=== PATIENT | male | born 1965 | race African-American/Black ===

== ENCOUNTER 2021-02-14 23:32 | Inpatient (IN) | payer OTHER ==
[2021-02-14 23:52] VITALS: BMI 24.4
[2021-02-15] MEDS ORDERED: SODIUM CHLORIDE 2,449 ML IV ONE (00:15)
[2021-02-15 00:57] LABS: VENOUS BASE EXCESS 0.4 mmol/L (-2-2); VENOUS O2 SATURATION 25.1 % (70-80); VENOUS PCO2 63.9 mmHg (38-52); VENOUS PH 7.267 (7.310-7.410)
[2021-02-15 01:00] LABS: BASO % 0.1 % (0-2.0); EOS % 4.4 % (0-4.5); HEMATOCRIT 32.6 % (35.4-49); HEMOGLOBIN 10.5 GM/dL (11.7-16.9); LYMPH % 13.6 % (8-40); MCHC 32.3 g/dl (32.0-35.9); MEAN CELL VOLUME 60.1 fl (80-96); MEAN PLT VOLUME 8.9 fl (7.5-11.1); MONO % 15.5 % (3.8-10.2); NEUT % 66.4 % (42.8-82.8); PLATELET COUNT 183 10^3/uL (134-434); RBC 5.42 M/mm3 (4.00-5.60); RDW 19.7 % (11.9-15.9); WHITE BLOOD COUNT 11.3 K/mm3 (4.0-10.0)
[2021-02-15 01:03] LABS: EPI CELLS 31 /uL (0-25.1); HYALINE CASTS 16 /uL (0-3.1); URINE APPEARANCE CLOUDY; URINE BACTERIA 11 /uL (0-1359); URINE BILIRUBIN NEGATIVE (NEGATIVE); URINE COLOR YELLOW; URINE GLUCOSE (UA) NEGATIVE (NEGATIVE); URINE KETONE TRACE (NEGATIVE); URINE LEUK ESTERASE TRACE (NEGATIVE); URINE NITRITE NEGATIVE (NEGATIVE); URINE PROTEIN 1+ (NEGATIVE); URINE RBC 84 /uL (0-23.9); URINE WBC 42 /uL (0-25.8)
[2021-02-15 01:04] LABS: MCH 19.4 pg (25.7-33.7)
[2021-02-15 01:08] LABS: METHADONE, UR NEGATIVE (NEGATIVE); URINE BENZODIAZEPINES NEGATIVE (NEGATIVE)
[2021-02-15 01:10] LABS: PHENCYCLIDINE,URINE NEGATIVE (NEGATIVE); URINE BARBITURATES NEGATIVE (NEGATIVE)
[2021-02-15 01:12] LABS: URINE AMPHETAMINES NEGATIVE (NEGATIVE)
[2021-02-15 01:14] LABS: CHLORIDE 106 mmol/L (98-107); INR 1.07 (0.83-1.09); PROTHROMBIN TIME (PATIENT) 12.9 SEC (9.7-13.0); SODIUM 141 mmol/L (136-145)
[2021-02-15 01:16] LABS: ACTIVATED PTT 29.7 SECONDS (25.2-36.5)
[2021-02-15 01:17] LABS: ALBUMIN 3.6 g/dl (3.4-5.0); ANION GAP 8 MMOL/L (8-16); BLOOD UREA NITROGEN 38.9 mg/dL (7-18); CALCIUM 8.7 mg/dL (8.5-10.1); CO2 26 mmol/L (21-32)
[2021-02-15 01:18] LABS: GLUCOSE,RANDOM 117 mg/dL (74-106)
[2021-02-15 01:20] LABS: CREATININE 1.5 mg/dL (0.55-1.3); SGOT/AST 112 U/L (15-37); SGPT/ALT 36 U/L (13-61)
[2021-02-15 01:22] LABS: ALK PHOS 92 U/L (45-117)
[2021-02-15 01:42] LABS: COCAINE, UR POSITIVE (NEGATIVE); OPIATES, URI POSITIVE (NEGATIVE)
[2021-02-15] MEDS ORDERED: CEFTRIAXONE 1 GM in DEXTROSE 5%-WATER - 100 ML IVPB ONE (01:51)
[2021-02-15 03:04] LABS: ANISOCYTOSIS 2+; MACROCYTOSIS 1+; PLATELET ESTIMATE NORMAL; ROULEAU 1+
[2021-02-15] MEDS ORDERED: CEFTRIAXONE 1 GM/50 ML BAG ONE (03:07)
[2021-02-15] MEDS ORDERED: ASPIRIN COATED 81 MG TABLET.EC PO ONE (04:41)
[2021-02-15] MEDS ORDERED: HEPARIN NA (PORCINE) 5,000 UNITS/ML 1ML VIAL ONE (05:01)
[2021-02-15] MEDS ORDERED: ASPIRIN COATED 81 MG TABLET.EC ONE (05:01)
[2021-02-15] MEDS: SODIUM CHLORIDE 1,000 ML IV SCH (05:17)
[2021-02-15] MEDS: HEPARIN NA (PORCINE) 5,000 UNITS/ML 1ML VIAL SQ SCH ×3 (05:18→21:16)
[2021-02-15 11:49] LABS: BASO % 0.3 % (0-2.0); EOS % 4.6 % (0-4.5); HEMOGLOBIN 9.8 GM/dL (11.7-16.9); LYMPH % 9.3 % (8-40); MCH 19.2 pg (25.7-33.7); MCHC 31.6 g/dl (32.0-35.9); MEAN CELL VOLUME 60.7 fl (80-96); MEAN PLT VOLUME 8.7 fl (7.5-11.1); MONO % 13.3 % (3.8-10.2); NEUT % 72.5 % (42.8-82.8); PLATELET COUNT 168 10^3/uL (134-434); RBC 5.11 M/mm3 (4.00-5.60); RDW 19.6 % (11.9-15.9); RETICULOCYTES 1.44 % (0.5-1.5); WHITE BLOOD COUNT 11.3 K/mm3 (4.0-10.0)
[2021-02-15 11:54] LABS: INR 1.14 (0.83-1.09)
[2021-02-15 12:11] LABS: ALBUMIN 3.2 g/dl (3.4-5.0); CALCIUM 8.4 mg/dL (8.5-10.1); MAGNESIUM 2.6 mg/dL (1.8-2.4)
[2021-02-15 12:15] LABS: BLOOD UREA NITROGEN 24.6 mg/dL (7-18); CREATININE 0.7 mg/dL (0.55-1.3); PHOSPHOROUS 2.2 mg/dL (2.5-4.9)
[2021-02-15 12:17] LABS: TOT PROT 6.5 g/dl (6.4-8.2)
[2021-02-15 12:37] LABS: BILIRUBIN,TOTAL 1.2 mg/dL (0.2-1)
[2021-02-15] MEDS: ACETAMINOPHEN 325 MG TABLET (FP) PO PRN (17:49)
[2021-02-15] MEDS ORDERED: MORPHINE SULFATE 2 MG/ML VIAL IVPUSH ONE (21:17)
[2021-02-15] MEDS ORDERED: ACETAMINOPHEN 1000 MG/100 ML VIAL (NON FORMULARY) IVPB ONE (23:30)
[2021-02-16] MEDS ORDERED: MORPHINE SULFATE 2 MG/ML VIAL IVPUSH PRN (01:00)
[2021-02-16] MEDS: SODIUM CHLORIDE 1,000 ML IV SCH ×3 (05:40→15:12)
[2021-02-16] MEDS: HEPARIN NA (PORCINE) 5,000 UNITS/ML 1ML VIAL SQ SCH ×3 (05:49→22:18)
[2021-02-16] MEDS: LISINOPRIL 5 MG TABLET PO SCH (09:48)
[2021-02-16] MEDS: morphine SO4 SUSTAINED ACTING 30 MG TABLET.SA PO SCH ×2 (09:48→22:18)
[2021-02-16] MEDS ORDERED: PT OWN MED DRAWER 7, Y5N ONE ×3 (10:33→21:54)
[2021-02-16] MEDS: OXYBUTYNIN CHLORIDE 5 MG TABLET PO SCH ×2 (10:35→22:18)
[2021-02-16] MEDS: GABAPENTIN 300 MG CAPSULE PO SCH ×2 (10:35→22:17)
[2021-02-16 11:00] LABS: BASO % 0.3 % (0-2.0); EOS % 7.9 % (0-4.5); HEMATOCRIT 31.3 % (35.4-49); HEMOGLOBIN 9.8 GM/dL (11.7-16.9); MCHC 31.3 g/dl (32.0-35.9); MEAN CELL VOLUME 61.2 fl (80-96); MEAN PLT VOLUME 9.9 fl (7.5-11.1); MONO % 15.8 % (3.8-10.2); PLATELET COUNT 161 10^3/uL (134-434); RBC 5.11 M/mm3 (4.00-5.60); RDW 20.4 % (11.9-15.9); WHITE BLOOD COUNT 5.9 K/mm3 (4.0-10.0)
[2021-02-16 11:02] LABS: MCH 19.2 pg (25.7-33.7)
[2021-02-16 11:24] LABS: BLOOD UREA NITROGEN 12.2 mg/dL (7-18); CALCIUM 8.7 mg/dL (8.5-10.1)
[2021-02-16 11:28] LABS: CREATININE 0.5 mg/dL (0.55-1.3); PHOSPHOROUS 2.2 mg/dL (2.5-4.9)
[2021-02-16] MEDS: morphine SULFATE IMMEDIATE RELEASE 30 MG TAB PO PRN ×2 (12:31→18:05)
[2021-02-16] MEDS: BACLOFEN 10 MG TABLET (FP) PO SCH ×2 (13:06→22:18)
[2021-02-16 13:33] LABS: PLATELET ESTIMATE NORMAL
[2021-02-17] MEDS: morphine SULFATE IMMEDIATE RELEASE 30 MG TAB PO PRN ×4 (00:10→18:33)
[2021-02-17] MEDS ORDERED: PT OWN MED DRAWER 7, Y5N ONE ×3 (05:56→13:16)
[2021-02-17] MEDS: BACLOFEN 10 MG TABLET (FP) PO SCH ×3 (06:14→21:23)
[2021-02-17] MEDS: HEPARIN NA (PORCINE) 5,000 UNITS/ML 1ML VIAL SQ SCH ×3 (06:14→21:23)
[2021-02-17 06:38] LABS: BASO % 0.3 % (0-2.0); EOS % 6.5 % (0-4.5); HEMATOCRIT 29.4 % (35.4-49); HEMOGLOBIN 9.3 GM/dL (11.7-16.9); LYMPH % 16.2 % (8-40); MCHC 31.8 g/dl (32.0-35.9); MEAN CELL VOLUME 60.9 fl (80-96); MEAN PLT VOLUME 9.7 fl (7.5-11.1); MONO % 12.8 % (3.8-10.2); NEUT % 64.2 % (42.8-82.8); PLATELET COUNT 183 10^3/uL (134-434); RBC 4.82 M/mm3 (4.00-5.60); RDW 19.6 % (11.9-15.9)
[2021-02-17 06:59] LABS: BLOOD UREA NITROGEN 10.8 mg/dL (7-18); CALCIUM 8.6 mg/dL (8.5-10.1)
[2021-02-17 07:03] LABS: CREATININE 0.6 mg/dL (0.55-1.3); MCH 19.4 pg (25.7-33.7)
[2021-02-17] MEDS: GABAPENTIN 300 MG CAPSULE PO SCH ×2 (09:36→21:23)
[2021-02-17] MEDS: OXYBUTYNIN CHLORIDE 5 MG TABLET PO SCH ×2 (09:37→21:23)
[2021-02-17] MEDS: LISINOPRIL 5 MG TABLET PO SCH (09:37)
[2021-02-17] MEDS: morphine SO4 SUSTAINED ACTING 30 MG TABLET.SA PO SCH ×2 (09:37→21:24)
[2021-02-17] MEDS: SODIUM CHLORIDE 1,000 ML IV SCH (18:30)
[2021-02-17] MEDS: ACETAMINOPHEN 325 MG TABLET (FP) PO PRN (18:38)
[2021-02-17 21:36] VITALS: BP 117/52; PULSE 78; TEMP 98.5
[2021-02-18] MEDS: morphine SULFATE IMMEDIATE RELEASE 30 MG TAB PO PRN (00:54)
[2021-02-18] MEDS: ACETAMINOPHEN 325 MG TABLET (FP) PO PRN (03:20)
== END 2021-02-18 04:08 | disposition home or self-care (01) | DRG 351 ==
LOC: JER 23:32 → JERBED 02-15 02:04 → J4S 02-15 14:06
PROVIDERS: ADMIT Internal Medicine; ATTEND Internal Medicine
DX: M62.82 Rhabdomyolysis (principal); N17.9 Acute kidney failure, unspecified; I24.8 Other forms of acute ischemic heart disease; G82.20 Paraplegia, unspecified; D72.829 Elevated white blood cell count, unspecified; D50.9 Iron deficiency anemia, unspecified; I45.10 Unspecified right bundle-branch block; G89.29 Other chronic pain; F14.920 Cocaine use, unspecified with intoxication, uncomplicated; F14.988 Cocaine use, unspecified with other cocaine-induced disorder
CPT/HCPCS: 36415; 70450-TC; 71045-TC-FY; 80048; 80053; 80061; 80307; 81003; 82140; 82550; 82553; 82803; 83540; 83550; 83605; 83721; 83735; 84100; 84484; 85025; 85045; 85610; 85730; 86850; 86900; 86901; 87040; 87086; 93005; 93010; 93306-TC; 97161-GP; C9803; J0131; J0475; J1644; U0003; U0005

== ENCOUNTER 2021-05-03 15:23 | Inpatient (IN) | payer OTHER ==
[2021-05-03] MEDS ORDERED: ACETAMINOPHEN 1000 MG/100 ML VIAL (NON FORMULARY) IVPB ONE (17:51)
[2021-05-03] MEDS ORDERED: SODIUM CHLORIDE 1,000 ML IV STA ×2 (17:51→22:01)
[2021-05-03 18:32] LABS: BASO % 0.3 % (0-2.0); EOS % 4.3 % (0-4.5); HEMATOCRIT 26.2 % (35.4-49); HEMOGLOBIN 8.5 GM/dL (11.7-16.9); LYMPH % 13.7 % (8-40); MCHC 32.6 g/dl (32.0-35.9); MEAN CELL VOLUME 59.6 fl (80-96); MONO % 18.1 % (3.8-10.2); NEUT % 63.6 % (42.8-82.8); PLATELET COUNT 241 10^3/uL (134-434); RBC 4.39 M/mm3 (4.00-5.60); RDW 17.9 % (11.9-15.9); WHITE BLOOD COUNT 10.1 K/mm3 (4.0-10.0)
[2021-05-03] MEDS ORDERED: ACETAMINOPHEN INJECTION 100 ML IVPB ONE (18:33)
[2021-05-03 18:37] LABS: MCH 19.4 pg (25.7-33.7)
[2021-05-03 18:46] LABS: EPI CELLS 2 /uL (0-25.1); HYALINE CASTS 4 /uL (0-3.1); PH,URINE 5.5 (5.0-8.0); URINE APPEARANCE CLEAR; URINE BACTERIA 5839 /uL (0-1359); URINE BILIRUBIN NEGATIVE (NEGATIVE); URINE COLOR YELLOW; URINE GLUCOSE (UA) NEGATIVE (NEGATIVE); URINE KETONE NEGATIVE (NEGATIVE); URINE LEUK ESTERASE 2+ (NEGATIVE); URINE NITRITE POSITIVE (NEGATIVE); URINE PROTEIN 1+ (NEGATIVE); URINE RBC 72 /uL (0-23.9); URINE WBC 338 /uL (0-25.8)
[2021-05-03 18:48] LABS: CHLORIDE 109 mmol/L (98-107); SODIUM 143 mmol/L (136-145)
[2021-05-03 18:50] LABS: ALBUMIN 2.5 g/dl (3.4-5.0); ANION GAP 6 MMOL/L (8-16); CALCIUM 8.3 mg/dL (8.5-10.1); CO2 27 mmol/L (21-32)
[2021-05-03 18:51] LABS: GLUCOSE,RANDOM 96 mg/dL (74-106)
[2021-05-03 18:53] LABS: SGOT/AST 23 U/L (15-37); SGPT/ALT 36 U/L (13-61)
[2021-05-03 18:54] LABS: CREATININE 0.9 mg/dL (0.55-1.3)
[2021-05-03 18:55] LABS: BILIRUBIN,TOTAL 0.6 mg/dL (0.2-1); TOT PROT 6.8 g/dl (6.4-8.2)
[2021-05-03 18:56] LABS: ALK PHOS 94 U/L (45-117)
[2021-05-03 18:58] LABS: N-TERMINAL BNP 1674.7 pg/ml (5-125)
[2021-05-03] MEDS ORDERED: CEFTRIAXONE 1 GM in DEXTROSE 5%-WATER - 100 ML IVPB ONE (19:08)
[2021-05-03] MEDS ORDERED: CEFTRIAXONE 1 GM/50 ML BAG ONE (19:12)
[2021-05-03 19:33] LABS: ANISOCYTOSIS 3+; MACROCYTOSIS 0; OVALOCYTE 1+; PLATELET ESTIMATE NORMAL; TARGET CELLS 2+
[2021-05-03 19:56] LABS: METHADONE, UR NEGATIVE (NEGATIVE); URINE BARBITURATES NEGATIVE (NEGATIVE)
[2021-05-03 19:57] LABS: PHENCYCLIDINE,URINE NEGATIVE (NEGATIVE); URINE BENZODIAZEPINES NEGATIVE (NEGATIVE)
[2021-05-03 20:01] LABS: COCAINE, UR POSITIVE (NEGATIVE); OPIATES, URI POSITIVE (NEGATIVE); URINE AMPHETAMINES NEGATIVE (NEGATIVE)
[2021-05-03] MEDS ORDERED: morphine CARPU-JECT 4 MG/1 ML DISP.SYRIN IVPUSH ONE (22:00)
[2021-05-03] MEDS ORDERED: morphine SULFATE 4 MG/ML VIAL ONE (22:21)
[2021-05-04] MEDS: SODIUM CHLORIDE 1,000 ML IV SCH ×2 (01:23→18:33)
[2021-05-04] MEDS ORDERED: ACETAMINOPHEN 1000 MG/100 ML VIAL (NON FORMULARY) IVPB ONE (01:31)
[2021-05-04] MEDS ORDERED: PIPERACILLIN/TAZOB 3.375 GM 3.375 GM/50 ML BAG IVPB ONE (01:51)
[2021-05-04] MEDS ORDERED: PIPERACILLIN/TAZOB 3.375 GM 3.375 GM in DEXTROSE 5%-WATER - 50 ML IVPB SCH (02:00)
[2021-05-04] MEDS ORDERED: MEROPENEM 1 GM VIAL (RESTRICTED TO ID) IVPB ONE ×3 (05:29→18:25)
[2021-05-04] MEDS ORDERED: DEXTROSE 5%-WATER 100 ML IVPB ONE ×3 (05:29→18:25)
[2021-05-04] MEDS: MEROPENEM 1 GM in DEXTROSE 5%-WATER 100 ML IVPB SCH ×5 (05:33→18:33)
[2021-05-04 09:11] LABS: BASO % 0.6 % (0-2.0); EOS % 5.4 % (0-4.5); HEMOGLOBIN 8.7 GM/dL (11.7-16.9); MCHC 32.3 g/dl (32.0-35.9); MEAN CELL VOLUME 60.5 fl (80-96); MEAN PLT VOLUME 9.3 fl (7.5-11.1); MONO % 12.9 % (3.8-10.2); NEUT % 72.1 % (42.8-82.8); PLATELET COUNT 258 10^3/uL (134-434); RBC 4.47 M/mm3 (4.00-5.60); WHITE BLOOD COUNT 7.7 K/mm3 (4.0-10.0)
[2021-05-04 09:24] LABS: MCH 19.6 pg (25.7-33.7)
[2021-05-04 09:36] LABS: CALCIUM 8.2 mg/dL (8.5-10.1)
[2021-05-04 09:37] LABS: ALBUMIN 2.3 g/dl (3.4-5.0); BLOOD UREA NITROGEN 9.7 mg/dL (7-18); MAGNESIUM 2.1 mg/dL (1.8-2.4)
[2021-05-04] MEDS: ENOXAPARIN NA (PORCINE) 40 MG/0.4 ML DISP.SYRIN SQ SCH (09:38)
[2021-05-04 09:39] LABS: CREATININE 0.8 mg/dL (0.55-1.3)
[2021-05-04 09:40] LABS: PHOSPHOROUS 3.5 mg/dL (2.5-4.9)
[2021-05-04 09:41] LABS: BILIRUBIN,TOTAL 0.4 mg/dL (0.2-1); TOT PROT 6.5 g/dl (6.4-8.2)
[2021-05-04] MEDS ORDERED: GABAPENTIN 300 MG CAPSULE PO SCH (11:30)
[2021-05-04] MEDS: PANTOPRAZOLE 40 MG TABLET PO SCH (12:08)
[2021-05-04] MEDS ORDERED: morphine SO4 SUSTAINED ACTING 30 MG TABLET.SA PO PRN (12:16)
[2021-05-04 12:25] VITALS: BMI 24.9
[2021-05-04] MEDS ORDERED: morphine SO4 SUSTAINED ACTING 30 MG TABLET.SA PO ONE (13:15)
[2021-05-04] MEDS: BACLOFEN 10 MG TABLET (FP) PO SCH ×2 (13:31→21:12)
[2021-05-04] MEDS: POLYETHYLENE GLYCOL (HEALTHYLAX) 3350 17 GM PACKET PO SCH ×2 (14:00→21:12)
[2021-05-04] MEDS: OXYBUTYNIN CHLORIDE 5 MG TABLET PO SCH ×2 (15:22→21:11)
[2021-05-04] MEDS: GABAPENTIN 300 MG CAPSULE PO SCH ×2 (15:24→21:13)
[2021-05-04] MEDS: COLLAGENASE CLOSTRIDIUM HIST. 30 GRAMS TUBE TP SCH (16:00)
[2021-05-04] MEDS ORDERED: ACETAMINOPHEN 500 MG TABLET (FP) PO PRN (16:23)
[2021-05-04] MEDS ORDERED: morphine SO4 SUSTAINED ACTING 30 MG TABLET.SA PO SCH (16:30)
[2021-05-04] MEDS ORDERED: morphine SULFATE IMMEDIATE RELEASE 30 MG TAB PO SCH (17:45)
[2021-05-04] MEDS: morphine SO4 SUSTAINED ACTING 30 MG TABLET.SA PO SCH ×2 (18:02→18:03)
[2021-05-04] MEDS: morphine SULFATE IMMEDIATE RELEASE 30 MG TAB PO PRN (18:42)
[2021-05-04] MEDS ORDERED: PT OWN MED DRAWER 7, Y5N ONE (21:07)
[2021-05-04] MEDS: AMINO ACIDS/PROTEIN HYDROLYS 30 ML LIQUID.PKT PO SCH (21:11)
[2021-05-05] MEDS: morphine SULFATE IMMEDIATE RELEASE 30 MG TAB PO PRN ×4 (00:34→21:14)
[2021-05-05] MEDS: SODIUM CHLORIDE 1,000 ML IV SCH (00:38)
[2021-05-05] MEDS ORDERED: MEROPENEM 1 GM VIAL (RESTRICTED TO ID) IVPB ONE ×2 (01:06→11:04)
[2021-05-05] MEDS ORDERED: DEXTROSE 5%-WATER 100 ML IVPB ONE ×2 (01:06→11:04)
[2021-05-05] MEDS: MEROPENEM 1 GM in DEXTROSE 5%-WATER 100 ML IVPB SCH ×2 (01:26→11:41)
[2021-05-05] MEDS: morphine SO4 SUSTAINED ACTING 30 MG TABLET.SA PO SCH ×2 (01:26→13:31)
[2021-05-05] MEDS: GABAPENTIN 300 MG CAPSULE PO SCH ×3 (06:08→21:26)
[2021-05-05] MEDS: POLYETHYLENE GLYCOL (HEALTHYLAX) 3350 17 GM PACKET PO SCH ×3 (06:09→21:27)
[2021-05-05] MEDS: BACLOFEN 10 MG TABLET (FP) PO SCH ×3 (06:09→21:27)
[2021-05-05 09:06] LABS: BLOOD UREA NITROGEN 8.6 mg/dL (7-18); CALCIUM 8.2 mg/dL (8.5-10.1)
[2021-05-05 09:09] LABS: CREATININE 0.7 mg/dL (0.55-1.3)
[2021-05-05] MEDS ORDERED: ACETAMINOPHEN 1000 MG/100 ML VIAL (NON FORMULARY) IVPB PRN (10:07)
[2021-05-05] MEDS: PANTOPRAZOLE 40 MG TABLET PO SCH (11:41)
[2021-05-05] MEDS: MULTIVITAMINS (DAILY MVI) TABLET (FP) PO SCH (11:41)
[2021-05-05] MEDS: AMINO ACIDS/PROTEIN HYDROLYS 30 ML LIQUID.PKT PO SCH ×2 (11:41→17:30)
[2021-05-05] MEDS: COLLAGENASE CLOSTRIDIUM HIST. 30 GRAMS TUBE TP SCH (11:41)
[2021-05-05] MEDS: OXYBUTYNIN CHLORIDE 5 MG TABLET PO SCH ×2 (11:41→21:27)
[2021-05-05] MEDS: FERROUS SO4 325 MG TABLET (FP) PO SCH (11:41)
[2021-05-05] MEDS: ENOXAPARIN NA (PORCINE) 40 MG/0.4 ML DISP.SYRIN SQ SCH (11:41)
[2021-05-05] MEDS: FUROSEMIDE 20 MG TABLET (FP) PO SCH (11:41)
[2021-05-05 15:50] LABS: BASO % 0.3 % (0-2.0); EOS % 6.9 % (0-4.5); HEMATOCRIT 25.4 % (35.4-49); HEMOGLOBIN 8.2 GM/dL (11.7-16.9); LYMPH % 16.8 % (8-40); MCHC 32.3 g/dl (32.0-35.9); MEAN CELL VOLUME 60.2 fl (80-96); MEAN PLT VOLUME 8.7 fl (7.5-11.1); MONO % 12.5 % (3.8-10.2); NEUT % 63.5 % (42.8-82.8); PLATELET COUNT 309 10^3/uL (134-434); RBC 4.23 M/mm3 (4.00-5.60); RDW 17.8 % (11.9-15.9); WHITE BLOOD COUNT 7.5 K/mm3 (4.0-10.0)
[2021-05-05 15:54] LABS: MCH 19.5 pg (25.7-33.7)
[2021-05-05 16:00] LABS: INR 1.12 (0.83-1.09); PROTHROMBIN TIME (PATIENT) 13.7 SEC (9.7-13.0)
[2021-05-05] MEDS: VANCOMYCIN 1 GRAM (PRE-DOCKED) 1,000 MG/250 ML BAG IVPB SCH (17:30)
[2021-05-05] MEDS ORDERED: AZTREONAM 1 GM VIAL (RESTRICTED TO ID) ONE (19:53)
[2021-05-05] MEDS ORDERED: DEXTROSE 5%-WATER - 50 ML IVPB ONE (19:53)
[2021-05-05] MEDS: AZTREONAM 1 GM in DEXTROSE 5%-WATER - 50 ML IVPB SCH (20:00)
[2021-05-06] MEDS ORDERED: DEXTROSE 5%-WATER - 50 ML IVPB ONE ×2 (01:05→09:24)
[2021-05-06] MEDS ORDERED: AZTREONAM 1 GM VIAL (RESTRICTED TO ID) ONE ×2 (01:05→09:24)
[2021-05-06] MEDS: morphine SO4 SUSTAINED ACTING 30 MG TABLET.SA PO SCH ×2 (01:07→13:59)
[2021-05-06] MEDS: AZTREONAM 1 GM in DEXTROSE 5%-WATER - 50 ML IVPB SCH ×2 (02:00→10:26)
[2021-05-06] MEDS: morphine SULFATE IMMEDIATE RELEASE 30 MG TAB PO PRN ×4 (02:57→22:51)
[2021-05-06] MEDS: VANCOMYCIN 1 GRAM (PRE-DOCKED) 1,000 MG/250 ML BAG IVPB SCH (03:06)
[2021-05-06] MEDS: BACLOFEN 10 MG TABLET (FP) PO SCH ×3 (06:22→21:33)
[2021-05-06] MEDS: GABAPENTIN 300 MG CAPSULE PO SCH ×3 (06:23→21:33)
[2021-05-06] MEDS: POLYETHYLENE GLYCOL (HEALTHYLAX) 3350 17 GM PACKET PO SCH ×3 (06:23→21:33)
[2021-05-06] MEDS: AMINO ACIDS/PROTEIN HYDROLYS 30 ML LIQUID.PKT PO SCH ×2 (09:31→18:03)
[2021-05-06] MEDS: MULTIVITAMINS (DAILY MVI) TABLET (FP) PO SCH (09:32)
[2021-05-06] MEDS: COLLAGENASE CLOSTRIDIUM HIST. 30 GRAMS TUBE TP SCH (09:32)
[2021-05-06] MEDS: FERROUS SO4 325 MG TABLET (FP) PO SCH (09:32)
[2021-05-06] MEDS: OXYBUTYNIN CHLORIDE 5 MG TABLET PO SCH ×2 (09:32→21:33)
[2021-05-06] MEDS: PANTOPRAZOLE 40 MG TABLET PO SCH (09:32)
[2021-05-06] MEDS: FUROSEMIDE 20 MG TABLET (FP) PO SCH (09:32)
[2021-05-06] MEDS: ENOXAPARIN NA (PORCINE) 40 MG/0.4 ML DISP.SYRIN SQ SCH (09:32)
[2021-05-06 10:37] LABS: BASO % 0.5 % (0-2.0); EOS % 5.6 % (0-4.5); HEMATOCRIT 25.5 % (35.4-49); HEMOGLOBIN 8.4 GM/dL (11.7-16.9); LYMPH % 16.8 % (8-40); MCH 19.6 pg (25.7-33.7); MEAN CELL VOLUME 59.5 fl (80-96); MEAN PLT VOLUME 9.3 fl (7.5-11.1); MONO % 13.3 % (3.8-10.2); NEUT % 63.8 % (42.8-82.8); PLATELET COUNT 359 10^3/uL (134-434); RBC 4.28 M/mm3 (4.00-5.60); RDW 18.1 % (11.9-15.9)
[2021-05-06 11:04] LABS: CALCIUM 8.5 mg/dL (8.5-10.1)
[2021-05-06 11:05] LABS: BLOOD UREA NITROGEN 9.3 mg/dL (7-18)
[2021-05-06 11:08] LABS: CREATININE 0.8 mg/dL (0.55-1.3)
[2021-05-06] MEDS ORDERED: HYDROmorphone HCl 2 MG/ML VIAL IVPB ONE (16:42)
[2021-05-06] MEDS: ERTAPENEM SODIUM 1 GM in SODIUM CHLORIDE 50 ML IVPB SCH (18:07)
[2021-05-06] MEDS: MUPIROCIN 2% TOPICAL OINTMENT 22 GM TUBE TP SCH (21:33)
[2021-05-06] MEDS ORDERED: SENNOSIDES 8.6MG TABLET (FP) PO ONE (23:05)
[2021-05-07] MEDS: morphine SO4 SUSTAINED ACTING 30 MG TABLET.SA PO SCH ×3 (01:05→15:19)
[2021-05-07] MEDS: BACLOFEN 10 MG TABLET (FP) PO SCH ×3 (05:34→21:18)
[2021-05-07] MEDS: morphine SULFATE IMMEDIATE RELEASE 30 MG TAB PO PRN ×3 (05:34→17:49)
[2021-05-07] MEDS: GABAPENTIN 300 MG CAPSULE PO SCH ×3 (05:34→21:18)
[2021-05-07] MEDS: POLYETHYLENE GLYCOL (HEALTHYLAX) 3350 17 GM PACKET PO SCH ×3 (07:05→21:17)
[2021-05-07] MEDS ORDERED: PT OWN MED DRAWER 7, Y5N ONE ×2 (09:59→20:40)
[2021-05-07] MEDS: FERROUS SO4 325 MG TABLET (FP) PO SCH (10:18)
[2021-05-07] MEDS: ENOXAPARIN NA (PORCINE) 40 MG/0.4 ML DISP.SYRIN SQ SCH (10:18)
[2021-05-07] MEDS: MULTIVITAMINS (DAILY MVI) TABLET (FP) PO SCH (10:18)
[2021-05-07] MEDS: ERTAPENEM SODIUM 1 GM in SODIUM CHLORIDE 50 ML IVPB SCH (10:18)
[2021-05-07] MEDS: FUROSEMIDE 20 MG TABLET (FP) PO SCH (10:19)
[2021-05-07] MEDS: MUPIROCIN 2% TOPICAL OINTMENT 22 GM TUBE TP SCH ×2 (10:19→23:47)
[2021-05-07] MEDS: OXYBUTYNIN CHLORIDE 5 MG TABLET PO SCH ×2 (10:20→21:21)
[2021-05-07] MEDS: PANTOPRAZOLE 40 MG TABLET PO SCH (10:20)
[2021-05-07] MEDS: AMINO ACIDS/PROTEIN HYDROLYS 30 ML LIQUID.PKT PO SCH ×2 (10:24→17:51)
[2021-05-07 13:18] LABS: BASO % 0.5 % (0-2.0); EOS % 5.4 % (0-4.5); HEMATOCRIT 27.5 % (35.4-49); HEMOGLOBIN 8.9 GM/dL (11.7-16.9); LYMPH % 17.8 % (8-40); MCH 19.5 pg (25.7-33.7); MCHC 32.2 g/dl (32.0-35.9); MEAN CELL VOLUME 60.6 fl (80-96); MEAN PLT VOLUME 9.1 fl (7.5-11.1); MONO % 10.9 % (3.8-10.2); NEUT % 65.4 % (42.8-82.8); PLATELET COUNT 340 10^3/uL (134-434); RBC 4.54 M/mm3 (4.00-5.60); WHITE BLOOD COUNT 8.4 K/mm3 (4.0-10.0)
[2021-05-07 13:47] LABS: ALBUMIN 2.4 g/dl (3.4-5.0); BLOOD UREA NITROGEN 12.4 mg/dL (7-18); CALCIUM 8.4 mg/dL (8.5-10.1)
[2021-05-07 13:51] LABS: CREATININE 0.7 mg/dL (0.55-1.3)
[2021-05-07 13:52] LABS: BILIRUBIN,TOTAL 0.2 mg/dL (0.2-1); TOT PROT 6.7 g/dl (6.4-8.2)
[2021-05-07 14:58] LABS: ANISOCYTOSIS 1+; MACROCYTOSIS 0; PLATELET ESTIMATE NORMAL; ROULEAU 1+; TARGET CELLS 1+
[2021-05-07] MEDS ORDERED: morphine SULFATE IMMEDIATE RELEASE 30 MG TAB PO PRN (20:08)
[2021-05-07] MEDS ORDERED: BISACODYL 10 MG SUPP.RECT PR ONE (23:46)
[2021-05-08] MEDS: morphine SO4 SUSTAINED ACTING 30 MG TABLET.SA PO SCH ×2 (00:47→12:13)
[2021-05-08] MEDS: BACLOFEN 10 MG TABLET (FP) PO SCH ×4 (05:19→21:19)
[2021-05-08] MEDS: POLYETHYLENE GLYCOL (HEALTHYLAX) 3350 17 GM PACKET PO SCH ×3 (05:19→21:21)
[2021-05-08] MEDS: GABAPENTIN 300 MG CAPSULE PO SCH ×4 (05:19→21:19)
[2021-05-08] MEDS ORDERED: morphine SULFATE IMMEDIATE RELEASE 30 MG TAB PO ONE (05:49)
[2021-05-08] MEDS ORDERED: PT OWN MED DRAWER 7, Y5N ONE (09:03)
[2021-05-08 09:22] LABS: BASO % 0.5 % (0-2.0); EOS % 5.1 % (0-4.5); HEMATOCRIT 27.4 % (35.4-49); LYMPH % 16.8 % (8-40); MCHC 32.7 g/dl (32.0-35.9); MEAN CELL VOLUME 59.9 fl (80-96); MEAN PLT VOLUME 9.1 fl (7.5-11.1); MONO % 13.3 % (3.8-10.2); NEUT % 64.3 % (42.8-82.8); PLATELET COUNT 398 10^3/uL (134-434); RBC 4.57 M/mm3 (4.00-5.60); RDW 17.8 % (11.9-15.9); WHITE BLOOD COUNT 8.1 K/mm3 (4.0-10.0)
[2021-05-08 09:25] LABS: MCH 19.6 pg (25.7-33.7)
[2021-05-08 09:45] LABS: CALCIUM 8.8 mg/dL (8.5-10.1)
[2021-05-08 09:46] LABS: ALBUMIN 2.5 g/dl (3.4-5.0); BLOOD UREA NITROGEN 13.8 mg/dL (7-18)
[2021-05-08 09:48] LABS: BILIRUBIN,TOTAL 0.6 mg/dL (0.2-1); CREATININE 0.7 mg/dL (0.55-1.3)
[2021-05-08] MEDS: MUPIROCIN 2% TOPICAL OINTMENT 22 GM TUBE TP SCH ×2 (10:01→21:30)
[2021-05-08] MEDS: AMINO ACIDS/PROTEIN HYDROLYS 30 ML LIQUID.PKT PO SCH ×2 (10:01→16:46)
[2021-05-08] MEDS: FUROSEMIDE 20 MG TABLET (FP) PO SCH (10:01)
[2021-05-08] MEDS: PANTOPRAZOLE 40 MG TABLET PO SCH (10:02)
[2021-05-08] MEDS: OXYBUTYNIN CHLORIDE 5 MG TABLET PO SCH ×2 (10:02→21:21)
[2021-05-08] MEDS: ENOXAPARIN NA (PORCINE) 40 MG/0.4 ML DISP.SYRIN SQ SCH (10:02)
[2021-05-08] MEDS: FERROUS SO4 325 MG TABLET (FP) PO SCH (10:02)
[2021-05-08] MEDS: MULTIVITAMINS (DAILY MVI) TABLET (FP) PO SCH (10:02)
[2021-05-08] MEDS ORDERED: ETOMIDATE 20 MG/10 ML AMPUL IVPUSH ONE (14:13)
[2021-05-08] MEDS: ERTAPENEM SODIUM 1 GM in SODIUM CHLORIDE 50 ML IVPB SCH (15:31)
[2021-05-08] MEDS: morphine SULFATE IMMEDIATE RELEASE 30 MG TAB PO PRN ×2 (15:34→21:20)
[2021-05-09] MEDS: morphine SO4 SUSTAINED ACTING 30 MG TABLET.SA PO SCH ×2 (00:50→13:52)
[2021-05-09] MEDS: morphine SULFATE IMMEDIATE RELEASE 30 MG TAB PO PRN ×3 (03:25→20:07)
[2021-05-09] MEDS: POLYETHYLENE GLYCOL (HEALTHYLAX) 3350 17 GM PACKET PO SCH (05:32)
[2021-05-09] MEDS: BACLOFEN 10 MG TABLET (FP) PO SCH ×3 (05:32→21:09)
[2021-05-09] MEDS: GABAPENTIN 300 MG CAPSULE PO SCH ×3 (05:32→21:09)
[2021-05-09] MEDS ORDERED: PT OWN MED DRAWER 7, Y5N ONE ×2 (09:08→20:40)
[2021-05-09] MEDS: AMINO ACIDS/PROTEIN HYDROLYS 30 ML LIQUID.PKT PO SCH ×2 (09:14→17:19)
[2021-05-09] MEDS: FUROSEMIDE 20 MG TABLET (FP) PO SCH (09:14)
[2021-05-09] MEDS: ERTAPENEM SODIUM 1 GM in SODIUM CHLORIDE 50 ML IVPB SCH (09:14)
[2021-05-09] MEDS: PANTOPRAZOLE 20 MG TABLET PO SCH (09:14)
[2021-05-09] MEDS: MULTIVITAMINS (DAILY MVI) TABLET (FP) PO SCH (09:14)
[2021-05-09] MEDS: FERROUS SO4 325 MG TABLET (FP) PO SCH (09:15)
[2021-05-09] MEDS: OXYBUTYNIN CHLORIDE 5 MG TABLET PO SCH ×2 (09:15→21:08)
[2021-05-09] MEDS: ENOXAPARIN NA (PORCINE) 40 MG/0.4 ML DISP.SYRIN SQ SCH (10:08)
[2021-05-09] MEDS: MUPIROCIN 2% TOPICAL OINTMENT 22 GM TUBE TP SCH ×2 (10:50→21:08)
[2021-05-10] MEDS ORDERED: BISACODYL 10 MG SUPP.RECT PR ONE (00:44)
[2021-05-10] MEDS: morphine SO4 SUSTAINED ACTING 30 MG TABLET.SA PO SCH ×2 (03:45→13:42)
[2021-05-10] MEDS: morphine SULFATE IMMEDIATE RELEASE 30 MG TAB PO PRN ×4 (03:51→22:36)
[2021-05-10] MEDS: BACLOFEN 10 MG TABLET (FP) PO SCH ×3 (05:10→21:34)
[2021-05-10] MEDS: GABAPENTIN 300 MG CAPSULE PO SCH ×3 (05:10→21:34)
[2021-05-10 09:38] LABS: BASO % 0.6 % (0-2.0); EOS % 6.8 % (0-4.5); HEMATOCRIT 29.7 % (35.4-49); HEMOGLOBIN 9.6 GM/dL (11.7-16.9); LYMPH % 24.1 % (8-40); MCHC 32.5 g/dl (32.0-35.9); MEAN PLT VOLUME 8.7 fl (7.5-11.1); MONO % 13.6 % (3.8-10.2); NEUT % 54.9 % (42.8-82.8); PLATELET COUNT 425 10^3/uL (134-434); RBC 4.95 M/mm3 (4.00-5.60); RDW 17.8 % (11.9-15.9); WHITE BLOOD COUNT 6.4 K/mm3 (4.0-10.0)
[2021-05-10 09:56] LABS: MCH 19.5 pg (25.7-33.7)
[2021-05-10] MEDS ORDERED: PT OWN MED DRAWER 7, Y5N ONE ×2 (10:09→20:42)
[2021-05-10 10:14] LABS: BLOOD UREA NITROGEN 17.8 mg/dL (7-18); CALCIUM 8.9 mg/dL (8.5-10.1); MAGNESIUM 2.3 mg/dL (1.8-2.4)
[2021-05-10 10:18] LABS: CREATININE 0.7 mg/dL (0.55-1.3); PHOSPHOROUS 3.2 mg/dL (2.5-4.9)
[2021-05-10] MEDS: ERTAPENEM SODIUM 1 GM in SODIUM CHLORIDE 50 ML IVPB SCH (10:24)
[2021-05-10] MEDS: AMINO ACIDS/PROTEIN HYDROLYS 30 ML LIQUID.PKT PO SCH ×2 (10:25→16:52)
[2021-05-10] MEDS: PANTOPRAZOLE 20 MG TABLET PO SCH (10:25)
[2021-05-10] MEDS: ENOXAPARIN NA (PORCINE) 40 MG/0.4 ML DISP.SYRIN SQ SCH (10:25)
[2021-05-10] MEDS: MUPIROCIN 2% TOPICAL OINTMENT 22 GM TUBE TP SCH ×2 (10:25→21:34)
[2021-05-10] MEDS: MULTIVITAMINS (DAILY MVI) TABLET (FP) PO SCH (10:25)
[2021-05-10] MEDS: FUROSEMIDE 20 MG TABLET (FP) PO SCH (10:25)
[2021-05-10] MEDS: FERROUS SO4 325 MG TABLET (FP) PO SCH (10:25)
[2021-05-10] MEDS: OXYBUTYNIN CHLORIDE 5 MG TABLET PO SCH ×2 (10:26→21:34)
[2021-05-11] MEDS: morphine SO4 SUSTAINED ACTING 30 MG TABLET.SA PO SCH ×2 (00:55→13:34)
[2021-05-11] MEDS: BACLOFEN 10 MG TABLET (FP) PO SCH ×3 (05:08→22:45)
[2021-05-11] MEDS: GABAPENTIN 300 MG CAPSULE PO SCH ×3 (05:08→22:45)
[2021-05-11] MEDS: morphine SULFATE IMMEDIATE RELEASE 30 MG TAB PO PRN ×4 (05:08→22:45)
[2021-05-11] MEDS ORDERED: PT OWN MED DRAWER 7, Y5N ONE ×2 (11:02→21:09)
[2021-05-11] MEDS: AMINO ACIDS/PROTEIN HYDROLYS 30 ML LIQUID.PKT PO SCH ×2 (11:11→17:21)
[2021-05-11] MEDS: FUROSEMIDE 20 MG TABLET (FP) PO SCH (11:11)
[2021-05-11] MEDS: MULTIVITAMINS (DAILY MVI) TABLET (FP) PO SCH (11:11)
[2021-05-11] MEDS: OXYBUTYNIN CHLORIDE 5 MG TABLET PO SCH ×2 (11:11→22:46)
[2021-05-11] MEDS: PANTOPRAZOLE 20 MG TABLET PO SCH (11:11)
[2021-05-11] MEDS: FERROUS SO4 325 MG TABLET (FP) PO SCH (11:11)
[2021-05-11] MEDS: MUPIROCIN 2% TOPICAL OINTMENT 22 GM TUBE TP SCH ×2 (11:11→22:45)
[2021-05-11] MEDS: ERTAPENEM SODIUM 1 GM in SODIUM CHLORIDE 50 ML IVPB SCH (11:11)
[2021-05-12] MEDS: morphine SO4 SUSTAINED ACTING 30 MG TABLET.SA PO SCH ×2 (01:24→14:15)
[2021-05-12] MEDS: GABAPENTIN 300 MG CAPSULE PO SCH ×2 (05:11→14:14)
[2021-05-12] MEDS: BACLOFEN 10 MG TABLET (FP) PO SCH ×2 (05:11→14:14)
[2021-05-12] MEDS: morphine SULFATE IMMEDIATE RELEASE 30 MG TAB PO PRN ×3 (05:19→17:28)
[2021-05-12] MEDS ORDERED: PT OWN MED DRAWER 7, Y5N ONE (09:50)
[2021-05-12] MEDS: FERROUS SO4 325 MG TABLET (FP) PO SCH (09:54)
[2021-05-12] MEDS: MULTIVITAMINS (DAILY MVI) TABLET (FP) PO SCH (09:54)
[2021-05-12] MEDS: PANTOPRAZOLE 20 MG TABLET PO SCH (09:55)
[2021-05-12] MEDS: AMINO ACIDS/PROTEIN HYDROLYS 30 ML LIQUID.PKT PO SCH ×2 (09:55→17:26)
[2021-05-12] MEDS: FUROSEMIDE 20 MG TABLET (FP) PO SCH (09:55)
[2021-05-12] MEDS: ERTAPENEM SODIUM 1 GM in SODIUM CHLORIDE 50 ML IVPB SCH (09:56)
[2021-05-12] MEDS: OXYBUTYNIN CHLORIDE 5 MG TABLET PO SCH (09:56)
[2021-05-12 10:47] LABS: BASO % 0.4 % (0-2.0); HEMATOCRIT 29.8 % (35.4-49); HEMOGLOBIN 9.5 GM/dL (11.7-16.9); LYMPH % 32.4 % (8-40); MEAN CELL VOLUME 60.6 fl (80-96); MONO % 15.9 % (3.8-10.2); NEUT % 44.3 % (42.8-82.8); PLATELET COUNT 408 10^3/uL (134-434); RBC 4.92 M/mm3 (4.00-5.60); RDW 18.3 % (11.9-15.9); WHITE BLOOD COUNT 5.7 K/mm3 (4.0-10.0)
[2021-05-12 10:50] LABS: MCH 19.4 pg (25.7-33.7)
[2021-05-12 11:08] LABS: BLOOD UREA NITROGEN 19.3 mg/dL (7-18)
[2021-05-12 11:11] LABS: CALCIUM 9.2 mg/dL (8.5-10.1)
[2021-05-12 11:12] LABS: ALBUMIN 2.9 g/dl (3.4-5.0); MAGNESIUM 2.2 mg/dL (1.8-2.4)
[2021-05-12 11:13] LABS: BILIRUBIN,TOTAL 0.8 mg/dL (0.2-1)
[2021-05-12 11:14] LABS: TOT PROT 7.6 g/dl (6.4-8.2)
[2021-05-12 11:15] LABS: CREATININE 0.8 mg/dL (0.55-1.3); PHOSPHOROUS 3.7 mg/dL (2.5-4.9)
[2021-05-12] MEDS: MUPIROCIN 2% TOPICAL OINTMENT 22 GM TUBE TP SCH (16:30)
[2021-05-12 17:41] VITALS: BP 100/59; PULSE 60; TEMP 98.6
== END 2021-05-12 18:47 | disposition home health service (06) | DRG 344 ==
LOC: JER 15:23 → JERBED 21:35 → J5S 05-04 03:15
PROVIDERS: ADMIT Internal Medicine
PROC: 0DB58ZX Excision of Esophagus, Via Natural or Artificial Opening Endoscopic, Diagnostic (ICD-10-PCS; 2021-05-08)
PROC: 0DB68ZX Excision of Stomach, Via Natural or Artificial Opening Endoscopic, Diagnostic (ICD-10-PCS; 2021-05-08)
PROC: 02HV33Z Insertion of Infusion Device into Superior Vena Cava, Percutaneous Approach (ICD-10-PCS; principal; 2021-05-12)
PROC: B518ZZA Fluoroscopy of Superior Vena Cava, Guidance (ICD-10-PCS; 2021-05-12)
DX: M86.9 Osteomyelitis, unspecified (principal); L89.613 Pressure ulcer of right heel, stage 3; R07.89 Other chest pain; N39.0 Urinary tract infection, site not specified; G82.20 Paraplegia, unspecified; B37.81 Candidal esophagitis; I10 Essential (primary) hypertension; E78.5 Hyperlipidemia, unspecified; F14.10 Cocaine abuse, uncomplicated; D50.9 Iron deficiency anemia, unspecified; J44.9 Chronic obstructive pulmonary disease, unspecified; I45.10 Unspecified right bundle-branch block; B96.1 Klebsiella pneumoniae [K. pneumoniae] as the cause of diseases classified elsewhere; B96.20 Unspecified Escherichia coli [E. coli] as the cause of diseases classified elsewhere; B95.2 Enterococcus as the cause of diseases classified elsewhere; R63.0 Anorexia; R94.31 Abnormal electrocardiogram [ECG] [EKG]; Z88.0 Allergy status to penicillin; Z99.3 Dependence on wheelchair; Z68.25 Body mass index [BMI] 25.0-25.9, adult
CPT/HCPCS: 36415; 36569; 70450-TC; 71045-TC-FY; 73590-TC-RT-FY; 73610-TC-RT-FY; 73630-TC-RT-FY; 76700-TC; 77001-TC-FY; 78315-TC; 80048; 80053; 80307; 81003; 82272; 82550; 82728; 82962; 83021; 83540; 83550; 83735; 83880; 84100; 84484; 85025; 85045; 85610; 85651; 85660; 86140; 87040; 87070; 87086; 87186; 87205; 88305-TC; 93005; 93010; 99285-25; A9503; C1751; C9803; J0131; J0475; U0003; U0005

== ENCOUNTER 2024-06-12 16:59 | Inpatient (IN) | payer OTHER ==
[2024-06-12] MEDS ORDERED: ACETAMINOPHEN INJECTION 100 ML ONE (19:36)
[2024-06-12 19:41] LABS: HEMATOCRIT 22.8 % (35.4-49); MCHC 30.6 g/dl (32.0-35.9); MEAN CELL VOLUME 54.6 fl (80-96); MEAN PLT VOLUME 8.5 fl (7.5-11.1); PLATELET COUNT 287 10^3/uL (134-434); POTASSIUM 4.5 mmol/L (3.5-5.1); RBC 4.18 M/mm3 (4.00-5.60); RDW 21.2 % (11.9-15.9); WHITE BLOOD COUNT 15.2 K/mm3 (4.0-10.0)
[2024-06-12] MEDS: ACETAMINOPHEN 1000 MG/100 ML BAG IVPB ONE (19:41)
[2024-06-12 19:42] LABS: MCH 16.7 pg (25.7-33.7)
[2024-06-12 19:43] LABS: ADD RBC MORPHOLOGY YES; CALCIUM 8.4 mg/dL (8.5-10.1)
[2024-06-12 19:44] LABS: BLOOD UREA NITROGEN 10.5 mg/dL (7-18)
[2024-06-12 19:47] LABS: CREATININE 1.1 mg/dL (0.55-1.3)
[2024-06-12 19:48] LABS: BILIRUBIN,TOTAL 0.8 mg/dL (0.2-1); TOT PROT 6.8 g/dl (6.4-8.2)
[2024-06-12 20:38] LABS: ANISOCYTOSIS 3+; MACROCYTOSIS 0; OVALOCYTE 2+; TARGET CELLS 2+
[2024-06-12 20:42] LABS: HIV INTERPRETATION NEGATIVE (NEGATIVE)
[2024-06-12 20:46] LABS: EPI CELLS >36 /uL (0-25.1); HYALINE CASTS 23 /uL (0-3.1); PH,URINE 6.5 (5.0-8.0); URINE APPEARANCE TURBID; URINE BACTERIA >9,000 /uL (0-1359); URINE BILIRUBIN NEGATIVE (NEGATIVE); URINE COLOR DK YELLOW; URINE GLUCOSE (UA) NEGATIVE (NEGATIVE); URINE KETONE TRACE (NEGATIVE); URINE LEUK ESTERASE 2+ (NEGATIVE); URINE NITRITE NEGATIVE (NEGATIVE); URINE PROTEIN 2+ (NEGATIVE); URINE RBC 188 /uL (0-23.9); URINE WBC 945 /uL (0-25.8)
[2024-06-12] MEDS ORDERED: morphine SULFATE 4 MG/ML VIAL ONE (20:56)
[2024-06-12] MEDS: morphine SULFATE 4 MG/ML VIAL IVPUSH ONE (21:01)
[2024-06-12 22:09] LABS: URINE CRYSTALS NONE SEEN /hpf
[2024-06-13] MEDS: ERTAPENEM SODIUM 0.5 GM in SODIUM CHLORIDE 50 ML IVPB ONE (00:41)
[2024-06-13] MEDS ORDERED: morphine SULFATE IMMEDIATE RELEASE 30 MG TAB ONE ×2 (01:02→13:11)
[2024-06-13] MEDS: morphine SULFATE IMMEDIATE RELEASE 30 MG TAB PO SCH (01:05)
[2024-06-13] MEDS: SODIUM CHLORIDE 0.9% 1000 ML INFUS.BAG IV ONE (01:33)
[2024-06-13] MEDS ORDERED: VANCOMYCIN/WATER 1250 MG 1,250 MG/250 ML BAG IVPB ONE (03:46)
[2024-06-13] MEDS: VANCOMYCIN/WATER 1250 MG 1,250 MG/250 ML BAG IVPB ONE (03:52)
[2024-06-13] MEDS ORDERED: BACLOFEN 10 MG TABLET (FP) ONE ×3 (05:42→22:17)
[2024-06-13] MEDS ORDERED: GABAPENTIN 300 MG CAPSULE ONE ×3 (05:44→22:17)
[2024-06-13 06:31] LABS: HEMATOCRIT 22.1 % (35.4-49); MCHC 31.1 g/dl (32.0-35.9); MEAN CELL VOLUME 54.4 fl (80-96); MEAN PLT VOLUME 8.9 fl (7.5-11.1); PLATELET COUNT 304 10^3/uL (134-434); RBC 4.06 M/mm3 (4.00-5.60); RDW 21.3 % (11.9-15.9); WHITE BLOOD COUNT 14.2 K/mm3 (4.0-10.0)
[2024-06-13 06:35] LABS: MCH 16.9 pg (25.7-33.7)
[2024-06-13 06:37] LABS: HEMOGLOBIN 6.9 GM/dL (11.7-16.9)
[2024-06-13 06:51] LABS: POTASSIUM 3.5 mmol/L (3.5-5.1)
[2024-06-13 06:54] LABS: CALCIUM 8.3 mg/dL (8.5-10.1)
[2024-06-13 06:55] LABS: IRON SERUM 10 ug/dL (50-175)
[2024-06-13 06:58] LABS: ALBUMIN 1.8 g/dl (3.4-5.0); BLOOD UREA NITROGEN 8.1 mg/dL (7-18); TOTAL IRON BINDING CAPACITY 128 ug/dL (250-450)
[2024-06-13] MEDS: GABAPENTIN 300 MG CAPSULE PO SCH (06:58)
[2024-06-13] MEDS: BACLOFEN 10 MG TABLET (FP) PO SCH (06:58)
[2024-06-13 07:01] LABS: CREATININE 0.9 mg/dL (0.55-1.3)
[2024-06-13 07:03] LABS: TOT PROT 6.2 g/dl (6.4-8.2)
[2024-06-13] MEDS ORDERED: morphine SO4 SUSTAINED ACTING 30 MG TABLET.SA PO ONE (07:23)
[2024-06-13 08:04] LABS: BILIRUBIN,TOTAL 0.5 mg/dL (0.2-1)
[2024-06-13] MEDS: OXYBUTYNIN CHLORIDE 5 MG TABLET PO SCH (09:45)
[2024-06-13] MEDS ORDERED: LISINOPRIL 5 MG TABLET ONE (10:06)
[2024-06-13] MEDS ORDERED: PANTOPRAZOLE SODIUM 40 MG VIAL ONE ×2 (10:06→22:18)
[2024-06-13] MEDS: LISINOPRIL 5 MG TABLET PO SCH (10:08)
[2024-06-13] MEDS: PANTOPRAZOLE SODIUM 40 MG VIAL IVPUSH SCH (10:08)
[2024-06-13] MEDS ORDERED: ERTAPENEM SODIUM 1 GM VIAL ONE (17:17)
[2024-06-13] MEDS ORDERED: POLYETHYLENE GLYCOL (HEALTHYLAX) 3350 17 GM PACKET ONE ×2 (17:17→22:17)
[2024-06-13] MEDS: MINERAL OIL ENEMA 133 ML ENEMA RC ONE ×2 (17:17)
[2024-06-13] MEDS: ERTAPENEM SODIUM 1 GM in SODIUM CHLORIDE 50 ML IVPB SCH (17:31)
[2024-06-13] MEDS: POLYETHYLENE GLYCOL (HEALTHYLAX) 3350 17 GM PACKET PO SCH ×2 (17:31→18:12)
[2024-06-13] MEDS ORDERED: SENNOSIDES 8.6MG TABLET (FP) PO SCH (22:00)
[2024-06-14] MEDS ORDERED: morphine SULFATE IMMEDIATE RELEASE 30 MG TAB ONE ×3 (00:16→19:16)
[2024-06-14] MEDS ORDERED: GABAPENTIN 300 MG CAPSULE ONE ×2 (06:29→14:24)
[2024-06-14] MEDS ORDERED: BACLOFEN 10 MG TABLET (FP) ONE ×2 (06:29→14:24)
[2024-06-14] MEDS ORDERED: POLYETHYLENE GLYCOL (HEALTHYLAX) 3350 17 GM PACKET ONE ×2 (06:29→14:24)
[2024-06-14 07:19] LABS: POTASSIUM 3.6 mmol/L (3.5-5.1)
[2024-06-14 07:20] LABS: CALCIUM 8.2 mg/dL (8.5-10.1)
[2024-06-14 07:21] LABS: BLOOD UREA NITROGEN 9.2 mg/dL (7-18)
[2024-06-14 07:24] LABS: CREATININE 0.8 mg/dL (0.55-1.3)
[2024-06-14 07:27] LABS: BASO % 0.2 % (0-2.0); HEMATOCRIT 23.2 % (35.4-49); HEMOGLOBIN 7.4 GM/dL (11.7-16.9); LYMPH % 8.9 % (8-40); MEAN CELL VOLUME 57.2 fl (80-96); MEAN PLT VOLUME 9.2 fl (7.5-11.1); MONO % 13.8 % (3.8-10.2); NEUT % 74.1 % (42.8-82.8); PLATELET COUNT 301 10^3/uL (134-434); RBC 4.05 M/mm3 (4.00-5.60); RDW 21.9 % (11.9-15.9); WHITE BLOOD COUNT 14.1 K/mm3 (4.0-10.0)
[2024-06-14 07:28] LABS: MCH 18.3 pg (25.7-33.7)
[2024-06-14 08:48] LABS: PLATELET ESTIMATE ADEQUATE
[2024-06-14] MEDS ORDERED: LISINOPRIL 5 MG TABLET ONE (13:04)
[2024-06-14] MEDS ORDERED: morphine SO4 SUSTAINED ACTING 30 MG TABLET.SA PO ONE (13:04)
[2024-06-14] MEDS ORDERED: ERTAPENEM SODIUM 1 GM VIAL ONE (13:05)
[2024-06-14] MEDS ORDERED: PANTOPRAZOLE SODIUM 40 MG/100 ML BAG IVPB ONE (13:05)
[2024-06-14] MEDS ORDERED: PIPERACILLIN/TAZOB 2.25 GM 2.25 GM/50 ML BAG IVPB ONE (13:23)
[2024-06-14] MEDS: HYDROCORTISONE 1% TOPICAL CREAM 30 GM TUBE TP SCH (14:17)
[2024-06-14] MEDS: IRON SUCROSE INJECTION 200 MG in SODIUM CHLORIDE 100 ML IVPB ONE (14:37)
[2024-06-14 18:02] LABS: EPI CELLS 15 /uL (0-25.1); HYALINE CASTS 4 /uL (0-3.1); PH,URINE 6.5 (5.0-8.0); URINE APPEARANCE CLOUDY; URINE BILIRUBIN NEGATIVE (NEGATIVE); URINE COLOR YELLOW; URINE GLUCOSE (UA) NEGATIVE (NEGATIVE); URINE KETONE NEGATIVE (NEGATIVE); URINE LEUK ESTERASE 2+ (NEGATIVE); URINE NITRITE POSITIVE (NEGATIVE); URINE PROTEIN 2+ (NEGATIVE); URINE UROBILINOGEN 0.2 mg/dL (0.2-1.0); URINE WBC 902 /uL (0-25.8)
[2024-06-14 21:39] LABS: URINE BACTERIA 1206.7 /uL (0-1359); URINE RBC 728.4 /uL (0-23.9)
[2024-06-14 21:40] LABS: YEAST NONE SEEN (NEGATIVE)
[2024-06-14 23:38] VITALS: BMI 20.2
[2024-06-15 09:32] LABS: POTASSIUM 4.3 mmol/L (3.5-5.1)
[2024-06-15 09:35] LABS: CALCIUM 8.3 mg/dL (8.5-10.1)
[2024-06-15 09:36] LABS: BLOOD UREA NITROGEN 9.9 mg/dL (7-18)
[2024-06-15 09:39] LABS: CREATININE 0.8 mg/dL (0.55-1.3)
[2024-06-15 10:05] LABS: HEMATOCRIT 25.7 % (35.4-49); HEMOGLOBIN 8.1 GM/dL (11.7-16.9); MCHC 31.5 g/dl (32.0-35.9); MEAN CELL VOLUME 57.9 fl (80-96); RBC 4.45 M/mm3 (4.00-5.60); RDW 22.6 % (11.9-15.9)
[2024-06-15 10:06] LABS: MCH 18.2 pg (25.7-33.7); WHITE BLOOD COUNT 16.6 K/mm3 (4.0-10.0)
[2024-06-15 10:18] LABS: ANISOCYTOSIS 2+; MACROCYTOSIS 0; TARGET CELLS 1+
[2024-06-15 10:20] LABS: PLATELET ESTIMATE ADEQUATE
[2024-06-15] MEDS: IRON SUCROSE INJECTION 200 MG in SODIUM CHLORIDE 100 ML IVPB ONE (13:14)
[2024-06-16 09:00] LABS: BASO % 0.3 % (0-2.0); EOS % 3.8 % (0-4.5); HEMATOCRIT 24.5 % (35.4-49); HEMOGLOBIN 7.4 GM/dL (11.7-16.9); LYMPH % 11.4 % (8-40); MEAN CELL VOLUME 58.6 fl (80-96); MEAN PLT VOLUME 8.3 fl (7.5-11.1); MONO % 12.7 % (3.8-10.2); NEUT % 71.8 % (42.8-82.8); PLATELET COUNT 430 10^3/uL (134-434); RBC 4.18 M/mm3 (4.00-5.60); RDW 21.2 % (11.9-15.9); WHITE BLOOD COUNT 11.9 K/mm3 (4.0-10.0)
[2024-06-16 09:03] LABS: MCH 17.6 pg (25.7-33.7)
[2024-06-16 09:20] LABS: POTASSIUM 4.1 mmol/L (3.5-5.1)
[2024-06-16 09:22] LABS: ALBUMIN 1.9 g/dl (3.4-5.0); BLOOD UREA NITROGEN 9.4 mg/dL (7-18); CALCIUM 8.6 mg/dL (8.5-10.1); MAGNESIUM 2.3 mg/dL (1.8-2.4)
[2024-06-16 09:26] LABS: CREATININE 0.8 mg/dL (0.55-1.3)
[2024-06-16 09:27] LABS: BILIRUBIN,TOTAL 0.5 mg/dL (0.2-1); TOT PROT 6.3 g/dl (6.4-8.2)
[2024-06-16 09:37] LABS: ANISOCYTOSIS 2+; MACROCYTOSIS 0; OVALOCYTE 1+; TARGET CELLS 2+
[2024-06-16] MEDS: IRON SUCROSE INJECTION 200 MG in SODIUM CHLORIDE 100 ML IVPB ONE (12:39)
[2024-06-16] MEDS ORDERED: oxyCODONE HCL 5 MG TABLET PO ONE (13:30)
[2024-06-16] MEDS: oxyCODONE HCL 5 MG TABLET PO ONE (14:12)
[2024-06-16] MEDS: ALBUTEROL SO4 2.5/IPRATROPIUM 0.5 INH SOL 3 ML VIAL.NEB. NEB SCH (15:57)
[2024-06-17] MEDS: oxyCODONE HCL 5 MG TABLET PO PRN (05:29)
[2024-06-17] MEDS: PEG 3350/NA SULF BICARB CL/KCL 4000 ML SOLN.RECON PO ONE (10:52)
[2024-06-17 11:25] LABS: BASO % 0.4 % (0-2.0); EOS % 3.5 % (0-4.5); HEMATOCRIT 24.9 % (35.4-49); HEMOGLOBIN 7.7 GM/dL (11.7-16.9); LYMPH % 10.5 % (8-40); MCHC 30.8 g/dl (32.0-35.9); MEAN PLT VOLUME 8.4 fl (7.5-11.1); MONO % 9.4 % (3.8-10.2); NEUT % 76.2 % (42.8-82.8); PLATELET COUNT 469 10^3/uL (134-434); RBC 4.28 M/mm3 (4.00-5.60); RDW 21.6 % (11.9-15.9); WHITE BLOOD COUNT 11.6 K/mm3 (4.0-10.0)
[2024-06-17 11:29] LABS: MCH 17.9 pg (25.7-33.7)
[2024-06-17 11:39] LABS: POTASSIUM 4.6 mmol/L (3.5-5.1)
[2024-06-17 11:44] LABS: CALCIUM 8.6 mg/dL (8.5-10.1)
[2024-06-17 11:45] LABS: ALBUMIN 1.9 g/dl (3.4-5.0); BLOOD UREA NITROGEN 12.7 mg/dL (7-18)
[2024-06-17 11:48] LABS: CREATININE 0.9 mg/dL (0.55-1.3); MAGNESIUM 2.3 mg/dL (1.8-2.4)
[2024-06-17 11:49] LABS: BILIRUBIN,TOTAL 0.5 mg/dL (0.2-1); TOT PROT 6.6 g/dl (6.4-8.2)
[2024-06-17] MEDS ORDERED: ACETAMINOPHEN 1000 MG/100 ML BAG IVPB PRN (22:26)
[2024-06-17] MEDS: ACETAMINOPHEN 1000 MG/100 ML BAG IVPB ONE (23:02)
[2024-06-17] MEDS: SODIUM CHLORIDE 1,000 ML IV STA (23:03)
[2024-06-18 11:06] LABS: POTASSIUM 4.3 mmol/L (3.5-5.1)
[2024-06-18 11:12] LABS: ALBUMIN 1.9 g/dl (3.4-5.0); BLOOD UREA NITROGEN 11.2 mg/dL (7-18); CALCIUM 8.4 mg/dL (8.5-10.1); MAGNESIUM 2.1 mg/dL (1.8-2.4)
[2024-06-18 11:16] LABS: CREATININE 0.8 mg/dL (0.55-1.3)
[2024-06-18 11:17] LABS: BASO % 0.5 % (0-2.0); BILIRUBIN,TOTAL 0.3 mg/dL (0.2-1); HEMATOCRIT 23.5 % (35.4-49); HEMOGLOBIN 7.5 GM/dL (11.7-16.9); LYMPH % 13.8 % (8-40); MCHC 31.8 g/dl (32.0-35.9); MEAN CELL VOLUME 58.2 fl (80-96); MEAN PLT VOLUME 8.6 fl (7.5-11.1); MONO % 10.6 % (3.8-10.2); NEUT % 71.1 % (42.8-82.8); PLATELET COUNT 472 10^3/uL (134-434); RBC 4.04 M/mm3 (4.00-5.60); RDW 21.6 % (11.9-15.9); TOT PROT 6.4 g/dl (6.4-8.2); WHITE BLOOD COUNT 9.6 K/mm3 (4.0-10.0)
[2024-06-18 11:19] LABS: MCH 18.5 pg (25.7-33.7)
[2024-06-18] MEDS: PEG 3350/NA SULF BICARB CL/KCL 4000 ML SOLN.RECON PO ONE (12:47)
[2024-06-18] MEDS: BISACODYL 5 MG TABLET.DR (FP) PO ONE (21:57)
[2024-06-19 10:29] LABS: INR 1.21 (0.83-1.09); PROTHROMBIN TIME (PATIENT) 13.8 SEC (9.7-13.0)
[2024-06-19 10:31] LABS: BASO % 0.2 % (0-2.0); EOS % 5.4 % (0-4.5); HEMATOCRIT 24.2 % (35.4-49); LYMPH % 19.6 % (8-40); MCHC 32.9 g/dl (32.0-35.9); MEAN PLT VOLUME 8.3 fl (7.5-11.1); MONO % 11.4 % (3.8-10.2); NEUT % 63.4 % (42.8-82.8); PLATELET COUNT 513 10^3/uL (134-434); RBC 4.17 M/mm3 (4.00-5.60); RDW 21.7 % (11.9-15.9); WHITE BLOOD COUNT 7.1 K/mm3 (4.0-10.0)
[2024-06-19 10:32] LABS: MCH 19.1 pg (25.7-33.7)
[2024-06-19 11:00] LABS: POTASSIUM 4.8 mmol/L (3.5-5.1)
[2024-06-19 11:06] LABS: CALCIUM 8.9 mg/dL (8.5-10.1)
[2024-06-19 11:07] LABS: BLOOD UREA NITROGEN 11.6 mg/dL (7-18); MAGNESIUM 2.1 mg/dL (1.8-2.4)
[2024-06-19 11:10] LABS: CREATININE 0.8 mg/dL (0.55-1.3)
[2024-06-19 11:12] LABS: BILIRUBIN,TOTAL 0.5 mg/dL (0.2-1); TOT PROT 6.7 g/dl (6.4-8.2)
[2024-06-19 11:27] LABS: ANISOCYTOSIS 2+; MACROCYTOSIS 0; OVALOCYTE 1+; TARGET CELLS 2+
[2024-06-20 09:03] LABS: BASO % 0.3 % (0-2.0); EOS % 3.4 % (0-4.5); HEMATOCRIT 26.2 % (35.4-49); HEMOGLOBIN 8.1 GM/dL (11.7-16.9); LYMPH % 20.2 % (8-40); MCHC 30.9 g/dl (32.0-35.9); MEAN CELL VOLUME 58.8 fl (80-96); MEAN PLT VOLUME 8.1 fl (7.5-11.1); MONO % 15.6 % (3.8-10.2); NEUT % 60.5 % (42.8-82.8); RBC 4.46 M/mm3 (4.00-5.60); RDW 22.1 % (11.9-15.9)
[2024-06-20 09:04] LABS: MCH 18.1 pg (25.7-33.7)
[2024-06-20 09:20] LABS: ALBUMIN 2.2 g/dl (3.4-5.0); BLOOD UREA NITROGEN 10.8 mg/dL (7-18); CALCIUM 8.8 mg/dL (8.5-10.1)
[2024-06-20 09:23] LABS: CREATININE 0.9 mg/dL (0.55-1.3)
[2024-06-20 09:25] LABS: BILIRUBIN,TOTAL 0.6 mg/dL (0.2-1); TOT PROT 7.3 g/dl (6.4-8.2)
[2024-06-20 09:58] LABS: PLATELET COUNT 439 10^3/uL (134-434)
[2024-06-21 09:06] LABS: BASO % 0.3 % (0-2.0); EOS % 2.2 % (0-4.5); HEMATOCRIT 25.8 % (35.4-49); HEMOGLOBIN 8.2 GM/dL (11.7-16.9); LYMPH % 25.6 % (8-40); MCHC 31.6 g/dl (32.0-35.9); MEAN CELL VOLUME 58.6 fl (80-96); MEAN PLT VOLUME 8.2 fl (7.5-11.1); MONO % 14.4 % (3.8-10.2); NEUT % 57.5 % (42.8-82.8); PLATELET COUNT 494 10^3/uL (134-434); WHITE BLOOD COUNT 8.9 K/mm3 (4.0-10.0)
[2024-06-21 09:09] LABS: MCH 18.5 pg (25.7-33.7)
[2024-06-21 09:15] LABS: POTASSIUM 4.1 mmol/L (3.5-5.1)
[2024-06-21 09:20] LABS: ALBUMIN 2.2 g/dl (3.4-5.0); BLOOD UREA NITROGEN 9.6 mg/dL (7-18); CALCIUM 9.1 mg/dL (8.5-10.1)
[2024-06-21 09:23] LABS: CREATININE 0.8 mg/dL (0.55-1.3)
[2024-06-21 09:25] LABS: TOT PROT 7.2 g/dl (6.4-8.2)
[2024-06-21 09:28] LABS: BILIRUBIN,TOTAL 0.9 mg/dL (0.2-1)
[2024-06-21] MEDS: PANTOPRAZOLE 40 MG TABLET PO SCH (11:31)
[2024-06-21] MEDS: PEG 3350/NA SULF BICARB CL/KCL 4000 ML SOLN.RECON PO ONE (11:31)
[2024-06-21] MEDS: BISACODYL 5 MG TABLET.DR (FP) PO ONE (20:52)
[2024-06-22 13:12] LABS: INR 1.29 (0.83-1.09); PROTHROMBIN TIME (PATIENT) 14.5 SEC (9.7-13.0)
[2024-06-22] MEDS: PEG 3350/NA SULF BICARB CL/KCL 4000 ML SOLN.RECON PO ONE (13:40)
[2024-06-22] MEDS ORDERED: ACETAMINOPHEN 1000 MG/100 ML BAG IVPB PRN (17:22)
[2024-06-22] MEDS: morphine SO4 SUSTAINED ACTING 30 MG TABLET.SA PO SCH (22:18)
[2024-06-23] MEDS: morphine SULFATE IMMEDIATE RELEASE 30 MG TAB PO PRN (00:23)
[2024-06-23 09:48] LABS: BASO % 0.3 % (0-2.0); EOS % 3.1 % (0-4.5); HEMOGLOBIN 7.8 GM/dL (11.7-16.9); LYMPH % 15.9 % (8-40); MCHC 32.3 g/dl (32.0-35.9); MEAN CELL VOLUME 57.3 fl (80-96); MEAN PLT VOLUME 8.2 fl (7.5-11.1); MONO % 15.4 % (3.8-10.2); NEUT % 65.3 % (42.8-82.8); PLATELET COUNT 471 10^3/uL (134-434); RBC 4.18 M/mm3 (4.00-5.60); RDW 22.9 % (11.9-15.9)
[2024-06-23 09:49] LABS: MCH 18.5 pg (25.7-33.7)
[2024-06-23 09:51] LABS: INR 1.25 (0.83-1.09); PROTHROMBIN TIME (PATIENT) 14.3 SEC (9.7-13.0)
[2024-06-23 10:07] LABS: CALCIUM 8.5 mg/dL (8.5-10.1); POTASSIUM 4.2 mmol/L (3.5-5.1)
[2024-06-23 10:08] LABS: ALBUMIN 2.1 g/dl (3.4-5.0); BLOOD UREA NITROGEN 7.3 mg/dL (7-18)
[2024-06-23 10:11] LABS: CREATININE 0.7 mg/dL (0.55-1.3)
[2024-06-23 10:12] LABS: BILIRUBIN,TOTAL 0.6 mg/dL (0.2-1)
[2024-06-23 10:13] LABS: TOT PROT 6.8 g/dl (6.4-8.2)
[2024-06-23 10:58] LABS: ANISOCYTOSIS 2+; MACROCYTOSIS 0; OVALOCYTE 1+
[2024-06-24 23:53] VITALS: RESP 18
[2024-06-25 07:32] VITALS: BP 93/59; PULSE 82; TEMP 98.4
== END 2024-06-25 12:40 | disposition home or self-care (01) | DRG 466 ==
LOC: JER 16:59 → JERBED 22:42 → OBSVTOIN 06-13 00:30 → J8W 06-14 21:38
PROVIDERS: ADMIT Internal Medicine; ATTEND Nurse Practitioner Acute Care
PROC: 30233N1 Transfusion of Nonautologous Red Blood Cells into Peripheral Vein, Percutaneous Approach (ICD-10-PCS; 2024-06-13)
PROC: 0QBP0ZX Excision of Left Metatarsal, Open Approach, Diagnostic (ICD-10-PCS; principal; 2024-06-20)
DX: T83.511A Infection and inflammatory reaction due to indwelling urethral catheter, initial encounter (principal); A41.9 Sepsis, unspecified organism; E43 Unspecified severe protein-calorie malnutrition; L89.154 Pressure ulcer of sacral region, stage 4; G82.20 Paraplegia, unspecified; D50.9 Iron deficiency anemia, unspecified; E78.5 Hyperlipidemia, unspecified; I10 Essential (primary) hypertension; J44.9 Chronic obstructive pulmonary disease, unspecified; K59.00 Constipation, unspecified; Z68.20 Body mass index [BMI] 20.0-20.9, adult; N39.0 Urinary tract infection, site not specified; Y83.9 Surgical procedure, unspecified as the cause of abnormal reaction of the patient, or of later complication, without mention of misadventure at the time of the procedure
CPT/HCPCS: 36415; 36430; 73630-TC-LT; 74177-TC; 80048; 80053; 81003; 82272; 82728; 83540; 83550; 83735; 84484; 85025; 85027; 85045; 85610; 86803; 86850; 86900; 86901; 86922; 87040; 87086; 87389; 93005; 93010; 94640; 99285-25; G0378; J0131; J0475; J1756; P9058; Q9967